=== PATIENT | male | born 1955 | race Caucasian/White ===

== ENCOUNTER 2025-03-16 13:51 | Outpatient (CLI) | payer MEDICARE, MEDICAID ==
[~2025-03-16] VITALS: Ht 160 cm; Wt 55.3 kg
[2025-03-16 14:32] LABS: TOTAL HEMOGLOBIN 12.6 G/dl (13.5-17.5)
[2025-03-16 14:38] VITALS: PULSE 60; RESP 16; O2SAT 95
[2025-03-16] MEDS: albuterol 2.5 MG/3 ML nebule NEB ONE (15:12)
[2025-03-16 15:24] VITALS: PULSE 85; RESP 18
--- NOTE | 2025-03-18 15:01 | PROCEDURE NOTE - Respiratory ---
Procedure Note-Respiratory Providers to Copies To 1: TOBY HAQ MD Procedure Name: This is a complete pulmonary function study dated March 16, 2025. Hemoglobin measurement was done as part of the study. Spirometry measurements: The forced vital capacity is normal. There is severe reduction in the FEV1 measurement. The FEV1 ratio is also quite low. All of the measured flow rates show substantial reduction. After inhaled bronchodilator was administered there is no appreciable change in the flow volume curve. Lung volume measurements: The total lung capacity is elevated. The residual volume and functional residual capacity measurements are also elevated. This documents hyperinflation with air trapping within the lungs. Lung diffusion measurement: The DLCO is significantly reduced. It is noted that the KVO measurement is severely low. The alveolar volume measurement remains normal. The hemoglobin measurement is in the lower range of normal. Airway resistance measurement: The airway resistance is quite elevated. Conclusion: This study is severely abnormal. There is evidence for severe obstructive ventilatory defect. This is consistent with the patient's history of cigarette related COPD. The patient shows hyperinflation with air trapping within the lungs. These findings together with the low diffusion capacity strongly suggests the presence of emphysema. This patient should abstain from cigarette smoking. Bronchodilator therapy should be continued. We have no previous studies for comparison. TOBY HAQ MD Mar 18, 2025 15:01
== END 2025-03-16 23:59 | disposition home or self-care (01) ==
LOC: RT 13:51
PROVIDERS: ATTEND Internal Medicine Pulmonary Disease
DX: J44.9 Chronic obstructive pulmonary disease, unspecified (principal)
CPT/HCPCS: 85018; 94060; 94727; 94729; 94760